=== PATIENT | female | born 1995 | race Caucasian/White ===

== ENCOUNTER 2018-10-16 13:13 | Emergency (ER) | payer OTHER ==
[~2018-10-16] VITALS: Ht 162.6 cm; Wt 65.9 kg
[2018-10-16 13:19] VITALS: TEMP 99.2
[2018-10-16 13:58] LABS: COLLECTION METHOD CLEAN CATCH
[2018-10-16] MEDS ORDERED: KYLEENA1 EACH IY (14:02)
[2018-10-16 14:05] LABS: MUCOUS Present /lpf; PH 7 (5-8); URINE APPEARANCE Hazy; URINE BACTERIA Rare /hpf; URINE BILIRUBIN Negative (NEGATIVE); URINE BLOOD Negative (NEGATIVE); URINE COLOR Yellow; URINE GLUCOSE Negative (NEGATIVE); URINE KETONE 1+ (NEGATIVE); URINE LEUKOCYTE ESTERASE Negative (NEGATIVE); URINE NITRATE Negative (NEGATIVE); URINE PROTEIN(semi-quant) Negative (NEGATIVE); URINE UROBILINOGEN Negative (NEGATIVE)
[2018-10-16 15:07] VITALS: BP 128/92; PULSE 87
== END 2018-10-16 15:03 | disposition home or self-care (01) ==
LOC: COL.ER 13:13
PROVIDERS: Family Medicine
DX: S06.0X0A Concussion without loss of consciousness, initial encounter (principal); S16.1XXA Strain of muscle, fascia and tendon at neck level, initial encounter; S30.0XXA Contusion of lower back and pelvis, initial encounter; R40.2412 Glasgow coma scale score 13-15, at arrival to emergency department; W11.XXXA Fall on and from ladder, initial encounter